=== PATIENT | female | born 1950 | race Caucasian/White ===

== ENCOUNTER 2020-06-25 13:22 | Outpatient (RCR) | payer MEDICARE, OTHER, SELFPAY ==
[2016-09-29 06:43] VITALS: BMI 26.3
== END 2020-09-07 23:59 ==
LOC: IMMUN 13:22
PROVIDERS: PCP Internal Medicine; Referring Provider Family Medicine; Visit Provider Family Medicine
DX: Z23 Encounter for immunization (principal)
CPT/HCPCS: 0001A; 0002A; 91300

== ENCOUNTER → 2021-01-13 07:00 | Outpatient (CLI) | payer MEDICARE, OTHER, SELFPAY ==
--- NOTE | 2021-01-13 08:00 | BRBX_PTH ---
PATIENT: NATALIO GAONA LOC: [facility] U#:[id number] AGE/SX: 74/F ROOM: RE01/13/[address]: Dr. Yanci Gonzalez MD : 1950 BED: DIS: SPEC #: [id number] RECD: 01/13/21 10:28 STATUS: JACQUE REQ #: [id number] ANITHA: 01/13/21 08:[address]: Yanci Gonzalez DEPT: SURGICAL PATHOLOGY RECD BY: Samira Thornton ENTERED: 01/13/21 11:51 SP TYPE: BREAST BX OTHR DR: Dr. Anushka San MD Tissues: Left breast, NOS Procedures: Surgery Specimen Level IV HEADER OPERATION: Left breast stereotactic biopsy PRE-OP DIAGNOSIS: 7 mm oval equal density, focal asymmetry with a circumscribed margin in the left breast at 10 o?clock middle depth TISSUE SUBMITTED: Left breast core tissue ISCHEMIC TIME: 1 minute FIXATION TIME: 11.5 hours MICROSCOPIC DIAGNOSIS Left breast, 10 o?clock middle depth, stereotactic core biopsy: Fibrocystic changes and intraductal hyperplasia without atypia. Negative for malignancy. See comment. KARLEE:pascual 01/14/2021 COMMENT Correlation with clinical, radiologic findings and appropriate follow up are necessary. MICROSCOPIC DESCRIPTION Slides are reviewed. GROSS DESCRIPTION Received in fixative is one container labeled with the patient's name and designated left breast. The specimen consists of multiple elongated fragments of collins-yellow fibroadipose tissue that in aggregate measure 5 x 3 x 0.6 cm. The entire specimen is submitted in four cassettes. / KARLEE:pascual 01/13/21 TC:5 CPT: 35346
--- NOTE | 2021-01-13 10:06 | PCM.OPRPT ---
Report of Operation Date of Procedure: 01/13/21 Pre-Operative Diagnosis: abnormal density on left breast mammograms Post-Operative Diagnosis: same Surgery/Procedure Performed:: left stereotactic breast biopsy Description of Surgical Findings:: abnormal density on left breast mammograms Surgeon: Yanci Gonzalez Type of Anesthesia: Local Specimen's removed: left breast tissue Estimated Blood Loss (mL): > 1 ml Description of Procedure: After informed consent was given, the patient was brought into the Breast Biopsy suite. Appropriate time out protocol was followed. The patient was placed in the prone position on the stereotactic biopsy table. The patient?s left breast was then placed in the opening at the head of the biopsy table. A training and development officer compression mammogram was then obtained in the medial lateral view. The suspicious radiological lesion was thus identified. Stereo pictures of the lesion were then taken for XYZ coordinates. The Mammotome biopsy stylus was then positioned where it would be entering into the patient?s breast. The skin at this site was then cleansed with a surgical skin preparation. The skin and subcutaneous tissues at this site were then infiltrated with 1% xylocaine. A small skin incision was made with an 11 blade scalpel. The biopsy stylus was then positioned into the patient?s breast at the proper coordinates of depth. Using the Mammotome vacuum-assist device, several core samples of breast tissue were obtained. A hemostatic marker clip was then placed into the biopsy cavity and a training and development officer film revealed that it was properly deployed. The patient was then placed in the supine position and pressure was applied to the breast until no active bleeding was noted. Steristrips were applied to reapproximate the skin. A unilateral mammogram in the CC and MLO view were then taken which revealed that the marker clip was in the same area as the previous suspicious lesion. The patient tolerated the procedure well and was discharged from the Breast Biopsy suite in good condition. Complications none noted Admit VTE Documentation VTE Present on Admission: Yes VTE Mechan Device Prophylaxis: SCD's
== END ==
PROVIDERS: PCP Internal Medicine; Referring Provider Surgery; Visit Provider Surgery
DX: R92.8 Other abnormal and inconclusive findings on diagnostic imaging of breast (principal)
CPT/HCPCS: 19081; 88305; J7050; A4648

== ENCOUNTER 2022-05-11 21:24 | Inpatient (IN) | payer MEDICARE, OTHER, SELFPAY ==
[2022-05-11 21:34] LABS: Basophil# 0.06 X10^3/uL; Basophil% 0.4 % (0-1); Eosinophil# 0.08 X10^3/uL; Eosinophils% 0.5 % (0-5); Hematocrit 36.4 % (37-47); Hemoglobin 12.4 g/dL (12.0-15.0); Lymphocyte % 11.7 % (19-41); Mean Corp Hgb Conc 34.1 g/dL (32-36); Mean Corpuscular Hgb 29.9 pg (27.0-32.0); Mean Corpuscular Volume 87.7 fL (81-99); Mean Platelet Vol. 9.9 fl (6.2-12.0); Monocyte# 1.01 X10^3/uL; Monocyte% 6.2 % (0-10); NRBC Flagged by Analyzer 0 % (0-5); Neutrophil # 13.01 X10^3/uL (2.7-7.7); Neutrophil % 80.5 % (47-70); Platelet Count 226 K/mm3 (150-450); RBC Distribution Width CV 12.7 % (11.6-14.6); RBC Distribution Width SD 40.4 fl (35.1-43.9); Red Blood Count 4.15 M/mm3 (4.2-5.4); White Blood Count 16.2 K/mm3 (4.4-11.0)
[2022-05-11] MEDS: Ondansetron 4 MG/2 ML Vial IV (21:38)
[2022-05-11 21:46] VITALS: BP 98/48; PULSE 83; RESP 18; TEMP 36.6; O2SAT 88; O2SAT 92; BMI 28.6
[2022-05-11 21:47] LABS: Anion Gap 10 (5-15); BUN 13 mg/dL (7-18); BUN/Creat Ratio 12.9 RATIO (10-20); Calcium,Total 8.8 mg/dL (8.5-10.1); Chloride 102 mmol/L (98-107); Creatinine, Serum 1.01 mg/dL (0.55-1.02); EST Glomerular Filtration Rate 58 mL/min (>60); Est Glom Filt Rate - Afr Amer 70 mL/min (>60); Glucose 178 mg/dL (74-106); Potassium 3.8 mmol/L (3.5-5.1); Sodium Level 135 mmol/L (136-145)
--- NOTE | 2022-05-11 22:09 | EDS_ITS ---
HPI History of Present Illness Chief Complaint: Weakness Detail of Chief Complaint: Generalized weakness Informant: patient Narrative Narrative: Patient presents to the emergency department complaint of feeling weak since yesterday. Patient states that she started with an illness about a week ago with cough and body aches. She took a COVID test today and was negative. Patient has had sputum production at times that is green and yellow. She and her tell me that her oxygen level was low on arrival in the emergency department and was 88% on room air. Patient also has been checking her blood pressure at home and it was as low as 80 over 40s. She feels lightheaded and dizzy with standing and walking. Patient currently on an antibiotic that she was started for sinus congestion and fluid on her ears. Patient vomited x1 today. She had no diarrhea. She denies abdominal pain. She denies chest pain. [facility] Medical History (Updated 05/11/22 @ 23:[address] Jeanie Bello, ) Congestive heart failure (CHF) GERD (gastroesophageal reflux disease) Hypertension ICD (implantable cardioverter-defibrillator) in place Pacemaker Home Medications aspirin 81 mg tablet,delayed release (Ecotrin Low Strength) 81 mg PO DAILY 07/14/13 [History Last Taken Unknown] carvedilol 12.5 mg tablet 12.5 mg PO BID 07/14/13 [History Last Taken 09/29/16 06:00] cholecalciferol (vitamin D3) 50 mcg (2,000 unit) tablet 6,000 unit PO DAILY 07/14/13 [History Last Taken Unknown] esomeprazole magnesium 40 mg capsule,delayed release (Nexium) 40 mg PO DAILY 07/14/13 [History Last Taken 09/29/16 06:00] lisinopril 5 mg tablet 5 mg PO DAILY 07/14/13 [History Last Taken 07/21/13 08:00] rosuvastatin 10 mg tablet 10 mg PO QHS 07/14/13 [History Last Taken Unknown] Lactobacillus 40-Bifidobact 3-S.thermophilus 100 billion cell capsule (Probiotic) cap PO 05/11/22 [History Last Taken Unknown] omega-3 fatty acids 2,000 mg PO BID 05/11/22 [History Last Taken Unknown] Allergy/AdvReac Type Severity Reaction Status Date / Time codeine Allergy Rash Verified 02/13/21 08:39 Penicillins Allergy Rash Verified 02/13/21 08:39 Social History Smoking Status: Never smoker ROS ROS ED Review of Systems ROS Unobtainable: other Constitutional Constitutional ED: Reports fever(s) and lethargy; Denies chills, sweats or weight loss Eyes Eyes: Denies blurry vision, change in vision or diplopia ENT ENT ED: Denies rhinorrhea or sore throat Cardiovascular Cardiovascular: Denies chest pain, orthopnea or racing heartbeat Respiratory/Chest Respiratory/Chest: Reports cough, dyspnea, dyspnea on exertion and sputum; Denies orthopnea Gastrointestinal Gastrointestinal: Reports nausea and vomiting; Denies abdominal pain or diarrhea Genitourinary Genitourinary ED: Denies dysuria, hematuria or urinary frequency Musculoskeletal Musculoskeletal: Reports myalgias; Denies arthralgias, back pain or neck pain Integumentary Denies abscess, Abrasions or rash Neurologic Neurologic: Denies headache(s) or weakness Psychiatric Psychiatric: Denies anxiety, depression or suicidal thoughts Endocrine Endocrinology: Denies polydipsia, polyphagia or polyuria Hematologic/Lymphatic Hematologic/Lymphatic: Denies easy bleeding, easy bruising or lymphadenopathy Allergic/Immunologic Allergic/Immunologic ED: Denies mouth swelling, tongue swelling or urticaria EXAM Physical Exam Const Vital Signs: 05/11/22 21:46 05/11/22 21:46 05/11/22 21:46 Temperature 97.8 F Temperature Source Temporal Pulse Rate 83 Respiratory Rate 18 Respiratory Effort Normal Non-Labored Respiratory Pattern Normal Blood Pressure 98/48 L Blood Pressure Mean 64 Pulse Ox 88 92 Oxygen Delivery Method Room Air Nasal Cannula Oxygen Flow Rate (L/min) 2 05/11/22 23:12 Temperature Temperature Source Pulse Rate 79 Respiratory Rate 18 Respiratory Effort Respiratory Pattern Blood Pressure 95/44 L Blood Pressure Mean 61 Pulse Ox 94 Oxygen Delivery Method Nasal Cannula Oxygen Flow Rate (L/min) 2 Positive well nourished and well developed General Appearance ED: well developed and NAD HEENT Reports TM's clear and moist mucous membranes normocephalic and atraumatic; Negative for trauma or tenderness Tympanic Membrane ED: Yes TM's clear Eyes PERRL and EOMs intact bilaterally General Eye ED: Negative for pale conjunctiva or scleral icterus Neck no lymphadenopathy, supple and no JVD General: Negative for tenderness Chest Wall inspection of chest normal and palpation of chest normal Chest: Negative for tenderness Resp normal respiratory effort and clear to auscultation bilaterally Effort and Inspection: Negative for respiratory distress or pain with movement Auscultation: Negative for rhonchi, wheezes or diminished lung sounds Cardio regular rate, regular rhythm, S1 normal heart sound, S2 normal heart sound and no murmurs Peripheral Pulses: pulses 2+ throughout GI normal to inspection, nondistended, normoactive bowel sounds, soft to palpation, non-tender, non-distended and no masses Back/Spine no CVA tenderness and no thoracic nor lumbar tenderness Extremity normal to inspection General Extremety ED: Negative for edema General Extremity: Negative for edema Neuro oriented x3, CN's II-XII intact bilaterally, no sensory deficits noted and gait normal Sensorium / Orientation: awake, alert, oriented to person, oriented to place and oriented to time Motor Exam: strength 5/5 throughout and strength abnormal Psych mental status grossly normal Skin no rashes or lesions noted and no wounds MDM MDM MDM Narrative Medical decision making narrative: IV line established and patient placed on manager action. Nursing staff started per protocol lab work. Patient's blood pressure in the 90s and therefore I ordered a liter normal saline fluid bolus. Given her cough and sputum production and hypotension was concerned about pneumonia also given her hypoxemia. Chest x-ray obtained did show a right lower lobe infiltrate on my interpretation. Lab work-up did show an elevated white count of 16.2. Lactate is pending. Blood cultures ordered. Patient started on Rocephin and Zithromax. COVID and influenza rapid testing pending. Lab Data Attestation: I reviewed the patient's lab results. Labs: Laboratory Results - last 24 hr 05/11/22 05/11/22 05/11/22 21:14 21:14 22:49 WBC 16.2 H RBC 4.15 L Hgb 12.4 Hct 36.4 L MCV 87.7 MCH 29.9 MCHC 34.1 RDW Std Deviation 40.4 RDW Coeff of Yumiko 12.7 Plt Count 226 MPV 9.9 Immature Gran % (Auto) 0.700 Neut % (Auto) 80.5 H Lymph % (Auto) 11.7 L [place] % (Auto) 6.2 Eos % (Auto) 0.5 Baso % (Auto) 0.4 Absolute Neuts (auto) 13.0 H Absolute Lymphs (auto) 1.90 Nucleated RBC % 0 Sodium 135 L Potassium 3.8 Chloride 102 Carbon Dioxide 23.0 Anion Gap 10 BUN 13 Creatinine 1.01 Est GFR (MDRD) Af Amer 70 Est GFR (MDRD) Non-Af 58 L BUN/Creatinine Ratio 12.9 Glucose 178 H Lactic Acid 0.8 Calcium 8.8 Radiography Chest X-Ray - ED: 1 View Diagnostic Testing: Clinical Impression(s) from Imaging Studies Chest X-Ray 05/11/22 22:20 IMPRESSION: Right lower lobe pneumonia. Electronically Signed: Norm Hope MD at 23:17 EST , 1 view chest x-ray obtained interpreted by myself as right lower lobe infiltrate. Official report from radiology pending. Discharge Plan Triage Chief Complaint: Weakness ED Provider: Jeanie Bello Dx/Rx/DC Orders Clinical Impression: Pneumonia, Hypoxia, Weakness, Acute hypotension, Leukocytosis Prescriptions: No Action carvedilol 12.5 MG tablet 12.5 mg PO BID Label Comments: TAKES 1 1/2 TAB TWICE A DAY aspirin [Ecotrin Low Strength] 81 MG tablet,delayed release (DR/EC) 81 mg PO DAILY esomeprazole magnesium [Nexium] 40 MG capsule 40 mg PO DAILY lisinopril 5 MG tablet 5 mg PO DAILY rosuvastatin 10 MG tablet 10 mg PO QHS cholecalciferol (vitamin D3) 2,000 UNIT tablet 6,000 unit PO DAILY [place] 3 Capsule 2,000 mg PO BID Probiotic 100 billion cell Capsule PO Primary Care Provider: Anushka San Referrals: Anushka San MD [Primary Care Provider] - Disposition Disposition: Acute Care Hospital [facility]
--- NOTE | 2022-05-11 22:20 | RAD_ITS ---
INDICATION: cough EXAMINATION/TECHNIQUE: X-RAY - XR Chest 1 View COMPARISON: None. FINDINGS: Right lower lobe consolidation. Tortuous and calcified thoracic aorta. The heart is mildly enlarged. Left-sided cardiac device. No pleural effusion or pneumothorax. Degenerative changes of the thoracic spine. RAD/Chest 1 View (Portable) IMPRESSION: Right lower lobe pneumonia. Electronically Signed: Norm Hope MD at 23:17 EST ,
[2022-05-11] MEDS: 0.9% Normal Saline 1,000 ML 999 ML IV ×2 (22:50→23:10)
[2022-05-11] MEDS: Ceftriaxone 1 GM/50 ML BAG IV (23:10)
[2022-05-11 23:12] VITALS: BP 95/44; PULSE 79; RESP 18; O2SAT 94
[2022-05-11 23:25] LABS: Lactic Acid 0.8 mmol/L (0.4-1.9)
--- NOTE | 2022-05-11 23:29 | HP.PCM.HOS_ITS ---
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 A 6-day before presentation patient was having a pro ductive cough and was aching so she went to urgent care. She was diagnosed with fluid behind her right ear. Patient reports that her sputum is yellowish-green. Following the urgent care diagnosis the patient saw an ENT doctor 3 days before presentation who did not see fluid in patient's ear upon examination but however felt that patient sinuses should be dilated and for which patient has an kamron ointment on Sunday, May 15, 2022. Patient reports home temperature with Tmax of about 100.7F. She reports hypotension at home. Because patient was not feeling well she called the ENTs office and she was prescribed antibiotic and for which as at the time of presentation patient had taken 1 dose. On presentation to the emergency department patient oxygen saturation was 88% on room air. [facility] Medical History (Updated 05/11/22 @ 23:[address] Jeanie Bello, ) Congestive heart failure (CHF) GERD (gastroesophageal reflux disease) Hypertension ICD (implantable cardioverter-defibrillator) in place Pacemaker Home Medications aspirin 81 mg tablet,delayed release (Ecotrin Low Strength) 81 mg PO DAILY 07/14/13 [History Last Taken Unknown] carvedilol 12.5 mg tablet 12.5 mg PO BID 07/14/13 [History Last Taken 09/29/16 06:00] cholecalciferol (vitamin D3) 50 mcg (2,000 unit) tablet 6,000 unit PO DAILY 07/14/13 [History Last Taken Unknown] esomeprazole magnesium 40 mg capsule,delayed release (Nexium) 40 mg PO DAILY 07/14/13 [History Last Taken 09/29/16 06:00] lisinopril 5 mg tablet 5 mg PO DAILY 07/14/13 [History Last Taken 07/21/13 08:00] rosuvastatin 10 mg tablet 10 mg PO QHS 07/14/13 [History Last Taken Unknown] Lactobacillus 40-Bifidobact 3-S.thermophilus 100 billion cell capsule (Probiotic) cap PO 05/11/22 [History Last Taken Unknown] omega-3 fatty acids 2,000 mg PO BID 05/11/22 [History Last Taken Unknown] Allergy/AdvReac Type Severity Reaction Status Date / Time codeine Allergy Rash Verified 02/13/21 08:39 Penicillins Allergy Rash Verified 02/13/21 08:39 Family History (Updated 05/11/22 @ 23:[address] Robb Coates MD) Other CAD (coronary artery disease) CVA (cerebral vascular accident) Diabetes Kidney disease Surgical History (Updated 05/11/22 @ 23:[address] Robb Coates MD) Hx of cholecystectomy Social History Smoking Status: Never smoker ROS ROS Narrative Pertinent positives and pertinent negatives as noted in HPI. All other systems were reviewed and are negative Vital Signs Vital Signs Vital Signs: 05/11/22 21:46 05/11/22 21:46 05/11/22 21:46 Temperature 97.8 F Temperature Source Temporal Pulse Rate 83 Respiratory Rate 18 Respiratory Effort Normal Non-Labored Respiratory Pattern Normal Blood Pressure 98/48 L Blood Pressure Mean 64 Pulse Ox 88 92 Oxygen Delivery Method Room Air Nasal Cannula Oxygen Flow Rate (L/min) 2 05/11/22 23:12 Temperature Temperature Source Pulse Rate 79 Respiratory Rate 18 Respiratory Effort Respiratory Pattern Blood Pressure 95/44 L Blood Pressure Mean 61 Pulse Ox 94 Oxygen Delivery Method Nasal Cannula Oxygen Flow Rate (L/min) 2 Weight Weight: 78 kg Body Mass Index (BMI) 28.6 Physical Exam Narrative Physical exam: General: Well-nourished, well-developed. Head: Normocephalic, atraumatic, no tenderness Eyes: Vision is grossly intact. EOMI ENT, no trauma, moist mucous membranes, no rhinorrhea Neck: Nontender, No thyromegaly. CVS: Regular rate and rhythm. S1-S2 present. No murmur, gallop or rub. Respiratory : Rales at right base, chest wall nontender, no wheezing Abdomen: Soft, nontender, nondistended, normal bowel sounds, no masses : Deferred Back: Nontender, no CVA tenderness. Extremities: Nontender full range of motion, no trauma Skin: Normal color, no trauma, abrasions Neuro: Alert, oriented, cranial nerves II through XII grossly intact. Psychiatry: Normal mood. Normal affect. Not depressed. Not anxious. Results Lab / Micro Data Result Diagrams: 05/11/22 21:14 05/11/22 21:14 Labs: Laboratory Results - last 24 hr 05/11/22 21:14: WBC 16.2 H, RBC 4.15 L, Hgb 12.4, Hct 36.4 L, MCV 87.7, MCH 29.9, MCHC 34.1, RDW Std Deviation 40.4, RDW Coeff of Yumiko 12.7, Plt Count 226, MPV 9.9, Immature Gran % (Auto) 0.700, Neut % (Auto) 80.5 H, Lymph % (Auto) 11.7 L, [place] % (Auto) 6.2, Eos % (Auto) 0.5, Baso % (Auto) 0.4, Absolute Neuts (auto) 13.0 H, Absolute Lymphs (auto) 1.90, Nucleated RBC % 0 05/11/22 21:14: Sodium 135 L, Potassium 3.8, Chloride 102, Carbon Dioxide 23.0, Anion Gap 10, BUN 13, Creatinine 1.01, Est GFR (MDRD) Af Amer 70, Est GFR (MDRD) Non-Af 58 L, BUN/Creatinine Ratio 12.9, Glucose 178 H, Calcium 8.8 05/11/22 22:49: Lactic Acid 0.8 Radiology Impression Chest X-Ray 05/11/22 22:20 IMPRESSION: Right lower lobe pneumonia. Electronically Signed: Norm Hope MD at 23:17 EST , Assessment & Plan Assessment/Plan (1) Pneumonia: PLAN: Plan Pneumonia with hypoxia Lactic acid: 0.8 Oxygen saturation: Continue oxygen supplementation started at the emergency department. Titrate Chest x-ray: Impression of radiologist: Right lower lobe pneumonia. Chest x-ray was visualized and independent interpreted. I agree with radiologist interpretation. White count of 16,200. With neutrophilic predominance. Trend BMP. Respiratory Gram stain and culture pending Antibiotics: Received ceftriaxone and azithromycin emergency department and continued. Legionella antigen screen and Strep antigen ordered Acute hypotension Patient with hypotension reportedly with systolic of 80s at home and MAP of less than 64 [id number]. Received normal saline bolus. Gentle IV hydration continue. Trend BMP. Hold home blood pressure medication of carvedilol and lisinopril. DVT prophylaxis Subcutaneous Lovenox ordered. Charges/Coding Visit Charges Inpatient E&M: 04243 Init Hosp L3
[2022-05-11 23:51] VITALS: BP 95/50; PULSE 81; RESP 18; TEMP 36.7; O2SAT 94
[2022-05-12] VITALS (13 sets, daily range): BP systolic 90–138; BP diastolic 53–72; PULSE 75–104; RESP 16–18; TEMP 36.7–37; O2SAT 93–96; BMI 27.4
[2022-05-12 01:17] LABS: Red Blood Cells-Urine 0 SEEN /hpf (0-5)
[2022-05-12 01:19] LABS: Color, Urine Yellow (Yellow); Glucose, Dipstick Normal (Normal); Ketone-Dipstick Negative (Negative); Leukocyte Esterase-Dipstick 25 /ul (Negative); Nitrite-Dipstick Negative (Negative); Occult Blood-Urine 10 /ul (Negative); Protein-Dipstick 30 mg/dl (Negative); Urine Bilirubin Dipstick Negative (Negative); Urine Clarity Clear (Clear); Urine Urobilinogen 1 mg/dl (Normal)
[2022-05-12 01:31] LABS: Bacteria 3+ /hpf (None Seen); Hyaline Cast 0-5 SEEN /lpf (0-5); Mucous, Urine RARE /hpf (<or=2+); Squamous Epithelial Cells - UA 0-5 SEEN /hpf (5-10); White Blood Cells 0-5 SEEN /hpf (0-5)
[2022-05-12] MEDS: guaiFENesin 1,200 MG Tablet 1200 MG PO ×3 (01:48→21:49)
[2022-05-12] MEDS: 0.9% Normal Saline 1,000 ML 100 ML IV ×2 (01:48→11:11)
[2022-05-12 06:28] LABS: Basophil# 0.04 X10^3/uL; Basophil% 0.3 % (0-1); Eosinophil# 0.06 X10^3/uL; Eosinophils% 0.5 % (0-5); Hematocrit 35.4 % (37-47); Hemoglobin 11.5 g/dL (12.0-15.0); Lymphocyte % 21.4 % (19-41); Mean Corp Hgb Conc 32.5 g/dL (32-36); Mean Corpuscular Hgb 29.3 pg (27.0-32.0); Mean Corpuscular Volume 90.3 fL (81-99); Mean Platelet Vol. 9.9 fl (6.2-12.0); Monocyte# 0.79 X10^3/uL; Monocyte% 6.3 % (0-10); NRBC Flagged by Analyzer 0 % (0-5); Neutrophil # 8.97 X10^3/uL (2.7-7.7); Neutrophil % 70.9 % (47-70); Platelet Count 209 K/mm3 (150-450); RBC Distribution Width CV 12.7 % (11.6-14.6); Red Blood Count 3.92 M/mm3 (4.2-5.4); White Blood Count 12.6 K/mm3 (4.4-11.0)
[2022-05-12 06:50] LABS: Anion Gap 7 (5-15); BUN 11 mg/dL (7-18); BUN/Creat Ratio 14.2 RATIO (10-20); Calcium,Total 8.1 mg/dL (8.5-10.1); Chloride 111 mmol/L (98-107); Creatinine, Serum 0.78 mg/dL (0.55-1.02); EST Glomerular Filtration Rate 78 mL/min (>60); Est Glom Filt Rate - Afr Amer 94 mL/min (>60); Estimated Creatinine Clearance 47.78 ml/min; Glucose 102 mg/dL (74-106); Potassium 3.8 mmol/L (3.5-5.1); Sodium Level 142 mmol/L (136-145)
--- NOTE | 2022-05-12 08:15 | PCM.PN.HOSP ---
Reason for Visit Reason for Visit: Diagnoses Pneumonia, unspecified organism (05/11/22) Subjective Subjective Patient is a 71-year-old lady admitted with shortness of breath. Chest x-ray obtained on admission demonstrated right lower lobe pneumonia admitted to a monitored bed for treatment Objective Data Objective Data Vital Signs: Vital Signs Temp Pulse Resp BP Pulse Ox O2 Del Method O2 Flow Rate 98.5 F 75 16 105/57 L 93 Room Air 2 05/12/22 05:40 05/12/22 05:40 05/12/22 05:40 05/12/22 05:40 05/12/22 05:40 05/12/22 05:40 05/11/22 23:51 Oxygen Flow Rate (L/min) 2 Oxygen Delivery Method Room Air Weight: 74.8 kg Body Mass Index (BMI) 27.4 Intake & Output: Intake and Output for Last 24 Hours 05/10/22 05/11/22 05/12/22 23:59 23:59 23:59 Intake Total 1050 / 1050 1555 / 1555 Balance 1050 / 1050 1555 / 1555 Lab / Micro Data Result Diagrams: 05/12/22 06:00 05/12/22 06:00 Labs: Laboratory Results - last 24 hr 05/11/22 21:14: WBC 16.2 H, RBC 4.15 L, Hgb 12.4, Hct 36.4 L, MCV 87.7, MCH 29.9, MCHC 34.1, RDW Std Deviation 40.4, RDW Coeff of Yumiko 12.7, Plt Count 226, MPV 9.9, Immature Gran % (Auto) 0.700, Neut % (Auto) 80.5 H, Lymph % (Auto) 11.7 L, [place] % (Auto) 6.2, Eos % (Auto) 0.5, Baso % (Auto) 0.4, Absolute Neuts (auto) 13.0 H, Absolute Lymphs (auto) 1.90, Nucleated RBC % 0 05/11/22 21:14: Sodium 135 L, Potassium 3.8, Chloride 102, Carbon Dioxide 23.0, Anion Gap 10, BUN 13, Creatinine 1.01, Est GFR (MDRD) Af Amer 70, Est GFR (MDRD) Non-Af 58 L, BUN/Creatinine Ratio 12.9, Glucose 178 H, Calcium 8.8 05/11/22 22:49: Lactic Acid 0.8 05/12/22 01:08: Urine Color Yellow, Urine Clarity Clear, Urine pH 5.0, Ur Specific [place] 1.020, Urine Protein 30 H, Urine Glucose (UA) Normal, Urine Ketones Negative, Urine Occult Blood 10 H, Urine Nitrite Negative, Urine Bilirubin Negative, Urine Urobilinogen 1 H, Ur Leukocyte Esterase 25 H, Urine RBC 0 SEEN, Urine WBC 0-5 SEEN, Ur Squamous Epith Cells 0-5 SEEN, Urine Bacteria 3+, Hyaline Casts 0-5 SEEN, Urine Mucus RARE 05/12/22 06:00: WBC 12.6 H, RBC 3.92 L, Hgb 11.5 L, Hct 35.4 L, MCV 90.3, MCH 29.3, MCHC 32.5, RDW Std Deviation 42.0, RDW Coeff of Yumiko 12.7, Plt Count 209, MPV 9.9, Immature Gran % (Auto) 0.600, Neut % (Auto) 70.9 H, Lymph % (Auto) 21.4, [place] % (Auto) 6.3, Eos % (Auto) 0.5, Baso % (Auto) 0.3, Absolute Neuts (auto) 9.0 H, Absolute Lymphs (auto) 2.70, Nucleated RBC % 0 05/12/22 06:00: Sodium 142, Potassium 3.8, Chloride 111 H, Carbon Dioxide 24.0, Anion Gap 7, BUN 11, Creatinine 0.78, Estim Creat Clear Calc 47.78, Est GFR (MDRD) Af Amer 94, Est GFR (MDRD) Non-Af 78, BUN/Creatinine Ratio 14.2, Glucose 102, Calcium 8.1 L Micro: Microbiology 05/11/22 22:49 Nasal Secretion SARS-CoV-2 & FLU Antigen (Rapid) - Final Radiography Diagnostic Testing: Radiology Impression Chest X-Ray 05/11/22 22:20 IMPRESSION: Right lower lobe pneumonia. Electronically Signed: Norm Hope MD at 23:17 EST , Physical Exam Narrative GENERAL: cooperative HEENT: Atraumatic; normocephalic EYES; Anicteric, Normal Conjunctiva NECK; supple, normal thyroid, RESPIRATORY: Diminished to auscultation CARDIOVASCULAR: Regular S1 S2, GI: soft, normoactive bowel sounds, : No Renal angle tenderness; EXTREMITIES: No edema, no clubbing, MUSCULOSKELETAL: no muscle wasting NEURO: Awake; no lateralizing signs. SKIN: No Rash PSYCH; Flat affect Assessment & Plan Assessment/Plan (1) Pneumonia: PLAN: Plan Patient is a 71-year-old lady admitted with shortness of breath. Chest x-ray obtained on admission demonstrated right lower lobe pneumonia admitted to a monitored bed for treatment 1. Pneumonia - Suspected to be secondary to streptococcal pneumonia, Blood and sputum cultures sent. Patient placed on Rocephin and Zithromax and placed on oxygen titrated to keep Pulse Ox greater than 90 2. Transient hypotension ? Patient was resuscitated with IV fluid 3. Essential hypertension ? Patient is on lisinopril held on admission in view of patient hypotension 4. GERD ? Patient is on esomeprazole, substituted with Protonix 5. Dyslipidemia ? Patient is on rosuvastatin substituted with atorvastatin in the hospital 6. DVT prophylaxis ? SC Lovenox Time spent in the patient's overall evaluation,decision-making process, review of diagnostic data, adjustment of management, discussion with other providers, nursing nursing and ancillary staff involved in patient's care documentation, 56 Minutes Charges/Coding Visit Charges Inpatient E&M: 92552 Subs Hosp L3
[2022-05-12] MEDS: Cholecalciferol (VIT D3) 25 MCG TABLET (1,000 UNITS) 150 MCG PO (09:01)
[2022-05-12] MEDS: Aspirin E.C. 81 MG Tablet PO (09:01)
[2022-05-12] MEDS: Enoxaparin 40 MG/0.4 ML Syringe SC (09:01)
[2022-05-12] MEDS: Pantoprazole Sodium 40 MG Tablet PO (10:08)
[2022-05-12] MEDS: Acetaminophen 325 MG Tablet 650 MG PO (10:08)
--- NOTE | 2022-05-12 12:00 | CASEMGMT ---
SMOOTH NARANJO Face to Face with patient for initial transition planning/care coordination assessment. RN CM introduced self and role at [facility]. Patient lying in bed, alert and oriented. Patient willing to participate in assessment and is able to answer all questions appropriately. Care providers, pharmacy, and demographics verified. Patient wishes to discharge home, denies need for home health at this time. Patient states she has no further needs or concerns at this time. CM to follow for discharge planning needs that may arise. 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 Patient states she is independent at home. Transportation: self, DME/HHC: Patient states she has shower chair, cane, and walker at home. No previous HHC or SNF. Will monitor for home oxygen at discharge, prefers [employer]. Disposition Plan: Patient to discharge home with family support and follow-up plans in place. Danielle WYATT, RN, CM
[2022-05-12] MEDS: Fluticasone 0.05% 1 SPRAY NASAL.SRY NASAL ×2 (15:17→21:50)
--- NOTE | 2022-05-12 15:24 | CHAPLAIN ---
Type of Pastoral Visit _x__ Initial Visit ___ Follow-up Visit ___ On-call Visit ___ General Patient Visit ___ Spiritual Assessment ___ Family Conference ___ Bereavement ___ Rapid Response ___ Code Blue ___ Other (describe below) Pastoral Care Referral From _x__ Patient ___ Family ___ Nurse ___ Physician ___ Secretary Administrative Assistant ___ Direct Service Professional ___ Other (describe below) Sacrament/Intervention _x__ Active listening ___ Anointing ___ Sabianist ___ Bereavement ___ Communion ___ Aileen exploration ___ ___ Life review _x__ Prayer ___ Reconciliation ___ Sacrament of Sick _x__ Supportive presence ___ Wedding ___ Other (describe below) Pastoral Comments patient stated that she has been in hospitals before but not recently; pt does not admit to any concerns or anxiety; sister of pt is in the room and described as her best friend and sister; sister says she will make sure the patient gets what she needs; prayer is welcomed
[2022-05-12] MEDS: Atorvastatin Calcium 20 MG Tablet PO (21:49)
[2022-05-12] MEDS: Ceftriaxone 1 GM/50 ML BAG IV (21:50)
[2022-05-12] MEDS: 0.9% Saline Lock 10 ML Syringe IV (21:55)
[2022-05-13 02:49] VITALS: PULSE 81
[2022-05-13 04:02] VITALS: BP 113/60; PULSE 80; RESP 16; TEMP 37.1; O2SAT 96
[2022-05-13 06:26] LABS: Absolute Lymphocyte Count 3.16 X10^3/uL (0.83-4.51); Absolute Neutrophil Count 4.9 X10^3/uL (2.0-7.7); Basophil# 0.06 X10^3/uL; Basophil% 0.7 % (0-1); Eosinophil# 0.28 X10^3/uL; Eosinophils% 3.1 % (0-5); Hematocrit 33.8 % (37-47); Lymphocyte # 3.16 X10^3/ul (0.83-4.51); Lymphocyte % 35.5 % (19-41); Mean Corp Hgb Conc 32.5 g/dL (32-36); Mean Corpuscular Hgb 29.2 pg (27.0-32.0); Mean Corpuscular Volume 89.7 fL (81-99); Mean Platelet Vol. 9.7 fl (6.2-12.0); Monocyte# 0.51 X10^3/uL; Monocyte% 5.7 % (0-10); NRBC Flagged by Analyzer 0 % (0-5); Neutrophil # 4.85 X10^3/uL (2.7-7.7); Neutrophil % 54.6 % (47-70); Platelet Count 212 K/mm3 (150-450); RBC Distribution Width CV 12.8 % (11.6-14.6); Red Blood Count 3.77 M/mm3 (4.2-5.4); White Blood Count 8.9 K/mm3 (4.4-11.0)
[2022-05-13 06:56] LABS: Anion Gap 7 (5-15); BUN 11 mg/dL (7-18); BUN/Creat Ratio 14.9 RATIO (10-20); Calcium,Total 8.4 mg/dL (8.5-10.1); Chloride 111 mmol/L (98-107); Creatinine, Serum 0.74 mg/dL (0.55-1.02); EST Glomerular Filtration Rate 83 mL/min (>60); Est Glom Filt Rate - Afr Amer 100 mL/min (>60); Estimated Creatinine Clearance 47.78 ml/min; Glucose 106 mg/dL (74-106); Magnesium 1.8 mg/dL (1.6-2.6); Phosphorus 2.3 mg/dL (2.5-4.9); Potassium 3.6 mmol/L (3.5-5.1); Sodium Level 141 mmol/L (136-145)
[2022-05-13 07:42] VITALS: PULSE 90
[2022-05-13] MEDS: Aspirin E.C. 81 MG Tablet PO (07:45)
[2022-05-13] MEDS: Cholecalciferol (VIT D3) 25 MCG TABLET (1,000 UNITS) 150 MCG PO (07:46)
[2022-05-13] MEDS: guaiFENesin 1,200 MG Tablet 1200 MG PO (07:46)
[2022-05-13] MEDS: Fluticasone 0.05% 1 SPRAY NASAL.SRY NASAL (07:47)
[2022-05-13] MEDS: Pantoprazole Sodium 40 MG Tablet PO (07:47)
[2022-05-13 07:55] VITALS: O2SAT 97
--- NOTE | 2022-05-13 10:01 | DCINST_ITS ---
Discharge Instructions Diet Discharge Diet: No restrictions Activity Discharge Activity: Return to Normal Activity Weight Bearing Status: Weight bearing as tolerated Dressing / Incision Call your doctor if you observe: Fever of 101 or Higher, Coldness, Increased Pain, Numbness or Tingling, Change in Color, Inability to urinate, Inability to have a bowel movement, Using more than 1 pad per hour, Shortness of breath, Dizziness, Fainting spells, Swelling in the ankles, Chest pain, Prolonged hiccupping, Increased palpitations (irregular heartbeat) and Calf discomfort Follow Up Care When: IN 2 WEEKS Test Results: Test results from this visit will be discussed in further detail at your follow- up appointment, if applicable. Discharge Plan Admission Admit Date/Time: 05/11/22 23:17 Primary Reason for Your Visit: RLL Pneumonia Attending Provider: Issac Mary Primary Care Provider: Anushka San Consulting Providers: Robb Coates ; Mark Jones Discharge Orders/Prescriptions Prescriptions: New Mucus Relief ER 1,200 mg Tablet Extended Release 12hr 1,200 mg PO BID 7 Days Qty: 14 0RF levofloxacin 500 mg tablet 500 mg PO DAILY Qty: 5 0RF Continued carvedilol 12.5 MG tablet 12.5 mg PO BID Label Comments: TAKES 1 1/2 TAB TWICE A DAY aspirin [Ecotrin Low Strength] 81 MG tablet,delayed release (DR/EC) 81 mg PO DAILY esomeprazole magnesium [Nexium] 40 MG capsule 40 mg PO DAILY lisinopril 5 MG tablet 5 mg PO DAILY rosuvastatin 10 MG tablet 10 mg PO QHS cholecalciferol (vitamin D3) 2,000 UNIT tablet 6,000 unit PO DAILY omega-3 fatty acids Capsule 2,000 mg PO BID benzonatate 100 mg Capsule 100 mg PO TID PRN (Reason: Cough) Lactobacillus acidophilus 1 caplet PO.IVFORM DAILY Discontinued doxycycline hyclate [Vibra-Tabs] 100 mg Tablet 100 mg PO BID Rx Instructions: x7 days had 1 dose Referrals / Follow Up: Anushka San MD [Primary Care Provider] - Within 2 Weeks Disposition Disposition (needs filled in before D/C Order can be placed): Home, Self Care
[2022-05-13 10:21] VITALS: BP 113/63; PULSE 85; RESP 18; TEMP 36.4; O2SAT 94
--- NOTE | 2022-05-13 11:07 | DS.PCM_ITS ---
Providers Date of Admission: 05/11/22 Date of Discharge: 05/13/22 Primary Care Physician: Dr. Anushka San MD Reason For Visit: PNEUMONIA Diagnosis Discharge Diagnosis (1) Pneumonia: Status: Acute Code(s): J18.9 - Pneumonia, unspecified organism Plan This is a 71-year-old female was admitted with 6 days history of productive cough with yellowish-greenish sputum, right otitis media. Thereafter patient saw ENT doctor 3 days prior to admission did not find fluid in the middle ear but sinus congestion/sinusitis and has appointment on May 15, 2022. Patient also had a fever Tmax 100.7 Fahrenheit reported hypotension at home. She had 1 dose of antibiotic doxycycline before admission. Mild hypoxia 88% on room air Chest x-ray obtained on admission demonstrated right lower lobe pneumonia admi tted to a monitored bed for treatment 1. Right lower lobe pneumonia - Suspected to be secondary to streptococcal pneumonia,? Blood and sputum cultures sent.? Blood culture times x2 pending from 05/11. Urinary antigens are negative. Flu and SARS-CoV-2 antigen negative. Patient states she is vaccin ated with COVID-pneumonia and flu. Patient had Rocephin and Zithromax and placed on oxygen titrated to keep Pulse Ox greater than 90. Hypoxia resolved. Patient is discharged on Levaquin for 5 more days to complete a total of 7 days of fluid. 2.? Transient hypotension ? Patient was resuscitated with IV fluid. Hypotension resolved. Patient was on Coreg 12.5 mg twice daily and lisinopril 5 mg at home. Antihypertensive medications were held. Advised to monitor BP at home and if systolic blood pressure less than 100 mmHg persistently, decrease the dose of Coreg 6.25 mg. Continue to hold dyspnea for 2 weeks until sees PCP. 3.? Essential hypertension ? Patient is on lisinopril held on admission in view of patient hypotension 4.? GERD ? Patient is on esomeprazole, substituted with Protonix 5.? Dyslipidemia ? Patient is on rosuvastatin substituted with atorvastatin in the hospital 6.? DVT prophylaxis ? SC Lovenox Discharge medication reconciliation done. Discharge follow-up instructions completed. Discharge process discussed with the patient and all questions were answered to patient's satisfaction. Total time spent, exact 35 minutes on discharge meds reconciliation, exam ination, coordination of care with nurses and ancillary staff, review of imaging and blood test and discussion with the patient on follow-up instructions. Medications at Discharge Home Medications aspirin 81 mg tablet,delayed release (Ecotrin Low Strength) 81 mg PO DAILY 07/14/13 cholecalciferol (vitamin D3) 50 mcg (2,000 unit) tablet 6,000 unit PO DAILY 07/14/13 esomeprazole magnesium 40 mg capsule,delayed release (Nexium) 40 mg PO DAILY Check with primary doctor 07/14/13 lisinopril 5 mg tablet 5 mg PO DAILY 07/14/13 rosuvastatin 10 mg tablet 10 mg PO QHS 07/14/13 omega-3 fatty acids 2,000 mg PO BID 05/11/22 Lactobacillus acidophilus 1 caplet PO.IVFORM DAILY Check with primary doctor 05/12/22 benzonatate 100 mg capsule 100 mg PO TID PRN Cough 05/12/22 carvedilol 12.5 mg tablet 12.5 mg PO BID #10 tabs 05/13/22 guaifenesin 1,200 mg tablet, extended release 12 hr (Mucus Relief ER) 1,200 mg PO BID 7 days #14 tabs 05/13/22 levofloxacin 500 mg tablet 500 mg PO DAILY #5 tabs 05/13/22 Weight / BMI Weight Weight: 164 lb 14.492 oz Body Mass Index (BMI) 27.4 ABG / Lab / Microbiology Data Result Diagrams: 05/13/22 06:15 05/13/22 06:15 Laboratory: Laboratory Results - last 24 hr 05/13/22 06:15: WBC 8.9, RBC 3.77 L, Hgb 11.0 L, Hct 33.8 L, MCV 89.7, MCH 29.2, MCHC 32.5, RDW Std Deviation 42.0, RDW Coeff of Yumiko 12.8, Plt Count 212, MPV 9.7, Immature Gran % (Auto) 0.400, Neut % (Auto) 54.6, Lymph % (Auto) 35.5, [place] % (Auto) 5.7, Eos % (Auto) 3.1, Baso % (Auto) 0.7, Absolute Neuts (auto) 4.9, Absolute Lymphs (auto) 3.16, Nucleated RBC % 0 05/13/22 06:15: Sodium 141, Potassium 3.6, Chloride 111 H, Carbon Dioxide 23.0, Anion Gap 7, BUN 11, Creatinine 0.74, Estim Creat Clear Calc 47.78, Est GFR (MDRD) Af Amer 100, Est GFR (MDRD) Non-Af 83, BUN/Creatinine Ratio 14.9, Glucose 106, Calcium 8.4 L, Phosphorus 2.3 L, Magnesium 1.8 Microbiology: Microbiology 05/12/22 01:08 Urine, Random Legionella Antigen - Final 05/12/22 01:08 Urine, Clean Catch Streptococcus pneumoniae Antigen (M - Final 05/11/22 22:49 Nasal Secretion SARS-CoV-2 & FLU Antigen (Rapid) - Final D/C Instructions Discharge Diet: No restrictions Weight Bearing Status: Weight bearing as tolerated Call your doctor if you observe: Fever of 101 or Higher, Coldness, Increased Pain, Numbness or Tingling, Change in Color, Inability to urinate, Inability to have a bowel movement, Using more than 1 pad per hour, Shortness of breath, Dizziness, Fainting spells, Swelling in the ankles, Chest pain, Prolonged hiccupping, Increased palpitations (irregular heartbeat) and Calf discomfort When: IN 2 WEEKS Meaningful Use Info Meaningful Use Diagnoses (Choose all that apply): None applicable Discharge Plan Admission Admit Date/Time: 05/11/22 23:17 Primary Reason for Your Visit: RLL Pneumonia Attending Provider: Issac Mary Primary Care Provider: Anushka San Consulting Providers: Robb Coates ; Mark Jones Discharge Orders/Prescriptions Prescriptions: New Mucus Relief ER 1,200 mg Tablet Extended Release 12hr 1,200 mg PO BID 7 Days Qty: 14 0RF levofloxacin 500 mg tablet 500 mg PO DAILY Qty: 5 0RF Continued aspirin [Ecotrin Low Strength] 81 MG tablet,delayed release (DR/EC) 81 mg PO DAILY esomeprazole magnesium [Nexium] 40 MG capsule 40 mg PO DAILY rosuvastatin 10 MG tablet 10 mg PO QHS cholecalciferol (vitamin D3) 2,000 UNIT tablet 6,000 unit PO DAILY omega-3 fatty acids Capsule 2,000 mg PO BID benzonatate 100 mg Capsule 100 mg PO TID PRN (Reason: Cough) Lactobacillus acidophilus 1 caplet PO.IVFORM DAILY carvedilol 12.5 MG tablet 12.5 mg PO BID Qty: 10 0RF Label Comments: TAKES 1 1/2 TAB TWICE A DAY Rx Instructions: Advised to monitor BP and if systolic BP less than 100 mmHg, will decrease the dose to 6.25 mg twice daily. Held lisinopril 5 MG tablet 5 mg PO DAILY Hold Instructions: Hold for 2 weeks until sees PCP. Discontinued doxycycline hyclate [Vibra-Tabs] 100 mg Tablet 100 mg PO BID Rx Instructions: x7 days had 1 dose Referrals / Follow Up: Anushka San MD [Primary Care Provider] - Within 2 Weeks Disposition Disposition (needs filled in before D/C Order can be placed): Home, Self Care Charges/Coding Visit Charges Inpatient E&M: 71981 Disch Hosp >30min
[2022-05-13 12:54] VITALS: O2SAT 95; O2SAT 96
== END 2022-05-13 13:13 | disposition home or self-care (01) | DRG 195 ==
LOC: ED 23:30 → PCU 23:39
PROVIDERS: Internal Medicine; Admitting Provider Hospitalist; Emergency Provider Emergency Medicine; PCP Internal Medicine; Visit Provider Internal Medicine
DX: J15.4 Pneumonia due to other streptococci (principal); I10 Essential (primary) hypertension; I95.89 Other hypotension; K21.9 Gastro-esophageal reflux disease without esophagitis; R09.02 Hypoxemia; Z95.810 Presence of automatic (implantable) cardiac defibrillator; Z79.82 Long term (current) use of aspirin; Z79.899 Other long term (current) drug therapy
CPT/HCPCS: 36415; 71045; 80048; 81001; 83605; 83735; 84100; 85025; 87040; 87428; 87449; 94668; 99252; 99285; J7030; A4216; G0463; J2405

== ENCOUNTER 2022-06-02 09:51 | Emergency (ER) | payer MEDICARE, OTHER, SELFPAY ==
[2022-06-02 09:52] VITALS: BP 118/76; PULSE 105; RESP 24; TEMP 36.9; O2SAT 99; BMI 29.3
[2022-06-02] MEDS: 0.9% Normal Saline 1,000 ML 1000 ML IV (10:37)
[2022-06-02] MEDS: Ondansetron 4 MG/2 ML Vial IV (10:37)
[2022-06-02 10:45] LABS: Absolute Lymphocyte Count 1.47 X10^3/uL (0.83-4.51); Absolute Neutrophil Count 12.5 X10^3/uL (2.0-7.7); Basophil# 0.04 X10^3/uL; Basophil% 0.3 % (0-1); Eosinophil# 0.19 X10^3/uL; Eosinophils% 1.3 % (0-5); Hematocrit 46.2 % (37-47); Hemoglobin 14.5 g/dL (12.0-15.0); Lymphocyte # 1.47 X10^3/ul (0.83-4.51); Lymphocyte % 9.9 % (19-41); Mean Corp Hgb Conc 31.4 g/dL (32-36); Mean Corpuscular Hgb 29.1 pg (27.0-32.0); Mean Corpuscular Volume 92.8 fL (81-99); Mean Platelet Vol. 10.9 fl (6.2-12.0); Monocyte# 0.61 X10^3/uL; Monocyte% 4.1 % (0-10); NRBC Flagged by Analyzer 0 % (0-5); Neutrophil % 83.8 % (47-70); Platelet Count 243 K/mm3 (150-450); RBC Distribution Width CV 13.1 % (11.6-14.6); RBC Distribution Width SD 43.9 fl (35.1-43.9); Red Blood Count 4.98 M/mm3 (4.2-5.4); White Blood Count 14.9 K/mm3 (4.4-11.0)
[2022-06-02 11:00] LABS: ALB/GLOB Ratio 1.3 RATIO (0.9-2.4); AST(SGOT) 58 U/L (15-37); Alanine Aminotransfer ALT/SGPT 76 U/L (13-56); Albumin, Serum 4.1 g/dL (3.2-5.0); Alkaline Phosphatase 111 U/L (45-117); Anion Gap 10 (5-15); BUN 17 mg/dL (7-18); BUN/Creat Ratio 17.3 RATIO (10-20); Calcium,Total 9.4 mg/dL (8.5-10.1); Chloride 104 mmol/L (98-107); Creatinine, Serum 0.98 mg/dL (0.55-1.02); EST Glomerular Filtration Rate 59 mL/min (>60); Est Glom Filt Rate - Afr Amer 72 mL/min (>60); Estimated Creatinine Clearance 48.75 ml/min; Globulin 3.2 g/dL (2.2-4.2); Glucose 135 mg/dL (74-106); Lipase 187 U/L (73-393); Potassium 4.7 mmol/L (3.5-5.1); Protein, Total 7.3 g/dL (6.4-8.2); Sodium Level 138 mmol/L (136-145)
--- NOTE | 2022-06-02 11:13 | ED.VIS.GI ---
HPI HPI - GI History of Present Illness Chief Complaint: Nausea/Vomiting/Diarrhea Informant: patient Abdominal Pain/Flank Pain Onset: Today Context: Sudden Onset Timing: Intermittent Quality: Cramping Location: Diffuse Worsened by: Nothing Relieved by: Nothing Nausea/Vomiting/Emesis GI Symptom: Positive for Nausea and Vomiting Diarrhea/Melena/Hematochezia GI Symptom: Positive for Diarrhea; Negative for Melena or Hematochezia Associated Symptoms Associated Symptoms: Negative for Dysuria, Frequency or Hematuria Narrative Narrative: Patient presents with nausea, vomiting, diarrhea, and abdominal pain that began today. Patient states it began after she woke up earlier this morning. Patient states it has been intermittent throughout the morning. Patient states she had 9 episodes of vomiting today. Patient denies any hematemesis or coffee-ground emesis. Patient denies any melena or hematochezia. Patient describes her pain as cramping and is intermittent. Patient states that she gets the abdominal cramping and pain and then has episodes of nausea and vomiting. Patient states the pain then goes away after she vomits. Patient states nothing else makes it better nothing makes it worse. Patient denies any dysuria, hematuria, or urinary frequency. Patient states she called her primary care physician's office today. Patient states she was told to come to the emergency department so she does not become dehydrated. [facility] Medical History Congestive heart failure (CHF) GERD (gastroesophageal reflux disease) Hypertension ICD (implantable cardioverter-defibrillator) in place Pacemaker Home Medications aspirin 81 mg tablet,delayed release (Ecotrin Low Strength) 81 mg PO DAILY 07/14/13 [History Last Taken Unknown] cholecalciferol (vitamin D3) 50 mcg (2,000 unit) tablet 6,000 unit PO DAILY 07/14/13 [History Last Taken Unknown] esomeprazole magnesium 40 mg capsule,delayed release (Nexium) 40 mg PO DAILY Check with primary doctor 07/14/13 [History Last Taken 09/29/16 06:00] lisinopril 5 mg tablet 5 mg PO DAILY 07/14/13 [History Last Taken 07/21/13 08:00] rosuvastatin 10 mg tablet 10 mg PO QHS 07/14/13 [History Last Taken Unknown] omega-3 fatty acids 2,000 mg PO BID 05/11/22 [History Last Taken Unknown] Lactobacillus acidophilus 1 caplet PO.IVFORM DAILY Check with primary doctor 05/12/22 [History Last Taken Unknown] benzonatate 100 mg capsule 100 mg PO TID PRN Cough 05/12/22 [History Last Taken Unknown] carvedilol 12.5 mg tablet 12.5 mg PO BID #10 tabs 05/13/22 [Rx Last Taken 09/29/16 06:00] guaifenesin 1,200 mg tablet, extended release 12 hr (Mucus Relief ER) 1,200 mg PO BID 7 days #14 tabs 05/13/22 [Rx Last Taken Unknown] levofloxacin 500 mg tablet 500 mg PO DAILY #5 tabs 05/13/22 [Rx Last Taken Unknown] ondansetron 4 mg disintegrating tablet 4 mg PO Q8H PRN PRN Nausea #10 tabs 06/02/22 [Rx Last Taken Unknown] Allergy/AdvReac Type Severity Reaction Status Date / Time codeine Allergy Rash Verified 06/02/22 09:52 Penicillins Allergy Rash Verified 06/02/22 09:52 Family History Other CAD (coronary artery disease) CVA (cerebral vascular accident) Diabetes Kidney disease Surgical History Hx of cholecystectomy Social History household members: spouse housing: house number of children: 1 current occupational status: retired pets and animals: No Smoking Status: Never smoker ROS ROS ED Constitutional Constitutional ED: Denies chills or fever(s) Eyes Eyes: Denies blurry vision or change in vision ENT ENT ED: Denies rhinorrhea or sore throat Cardiovascular Cardiovascular: Denies chest pain or palpitations Respiratory/Chest Respiratory/Chest: Denies cough or dyspnea Gastrointestinal Gastrointestinal: Reports abdominal pain, diarrhea, nausea and vomiting Genitourinary Genitourinary ED: Denies dysuria or hematuria Musculoskeletal Musculoskeletal: Denies back pain or neck pain Integumentary Denies abscess or rash Neurologic Neurologic: Reports headache(s); Denies weakness Allergic/Immunologic Allergic/Immunologic ED: Denies mouth swelling or urticaria EXAM Physical Exam Const Vital Signs: 06/02/22 09:52 Temperature 98.4 F Temperature Source Oral Pulse Rate 105 H Respiratory Rate 24 H Blood Pressure 118/76 Blood Pressure Mean 90 Pulse Ox 99 Oxygen Delivery Method Room Air Positive well nourished and well developed General Appearance ED: well developed HEENT Reports moist mucous membranes Neck supple and no JVD Resp normal respiratory effort and clear to auscultation bilaterally Cardio regular rate, regular rhythm and no murmurs GI normal to inspection, nondistended, normoactive bowel sounds and non-tender Palpation: soft Extremity normal to inspection General Extremety ED: Negative for edema or tenderness General Extremity: Negative for edema Neuro oriented x3, CN's II-XII intact bilaterally and no sensory deficits noted Sensorium / Orientation: alert Motor Exam: strength 5/5 throughout Psych mental status grossly normal Skin no rashes or lesions noted MDM MDM MDM Narrative Medical decision making narrative: Differential diagnosis includes gastroenteritis, pancreatitis, dehydration, urinary tract infection, pyelonephritis, and electrolyte abnormality. CBC will be obtained to assess for leukocytosis and anemia. Comprehensive metabolic profile will be obtained to assess for electrolyte abnormality, renal function, and hepatic function. Urinalysis will be obtained to assess for urinary tract infection. Since the patient is not currently having any pain and she is not tender on examination, I do not feel this is a bowel obstruction or perforation. Lab Data Attestation: I reviewed the patient's lab results. Lab results narrative: CBC was reviewed and showed a mild leukocytosis of 14.9. Comprehensive metabolic profile was reviewed and was essentially within normal limits. Lipase was reviewed and was normal. Urinalysis was reviewed and does not show any evidence of urinary tract infection or hematuria. Labs: Laboratory Results - last 24 hr 06/02/22 06/02/22 06/02/22 10:40 10:40 11:20 WBC 14.9 H RBC 4.98 Hgb 14.5 Hct 46.2 MCV 92.8 MCH 29.1 MCHC 31.4 L RDW Std Deviation 43.9 RDW Coeff of Yumiko 13.1 Plt Count 243 MPV 10.9 Immature Gran % (Auto) 0.600 Neut % (Auto) 83.8 H Lymph % (Auto) 9.9 L [place] % (Auto) 4.1 Eos % (Auto) 1.3 Baso % (Auto) 0.3 Absolute Neuts (auto) 12.5 H Absolute Lymphs (auto) 1.47 Nucleated RBC % 0 Sodium 138 Potassium 4.7 Chloride 104 Carbon Dioxide 24.0 Anion Gap 10 BUN 17 Creatinine 0.98 Estim Creat Clear Calc 48.75 Est GFR (MDRD) Af Amer 72 Est GFR (MDRD) Non-Af 59 L BUN/Creatinine Ratio 17.3 Glucose 135 H Calcium 9.4 Total Bilirubin 0.60 AST 58 H ALT 76 H Alkaline Phosphatase 111 Total Protein 7.3 Albumin 4.1 Globulin 3.2 Albumin/Globulin Ratio 1.3 Lipase 187 Urine Color Yellow Urine Clarity Sl. Cloudy Urine pH 6.0 Ur Specific [place] 1.015 Urine Protein Negative Urine Glucose (UA) Normal Urine Ketones Negative Urine Occult Blood Negative Urine Nitrite Negative Urine Bilirubin Negative Urine Urobilinogen Normal Ur Leukocyte Esterase Negative Urine RBC 0 SEEN Urine WBC 0 SEEN Ur Squamous Epith Cells 0-5 SEEN Urine Bacteria 0 SEEN Urine Mucus 0 SEEN Differential Diagnosis Abdominal Pain: Appendicitis Reason(s) appendicitis less likely: Positive for clinical exam does not supportclinical exam does not support, Cholecystitis Reason(s) Cholecystitis less likely: other (Prior cholecystectomy), Pancreatitis Reason(s) Pancreatitis less likely: NL lab values, Bowel obstruction Reason(s) bowel obstruction less likely: bowel sounds present on exam and other (No abdominal tenderness on exam) and UTI Reason(s) UTI less likely: clinical exam does not support and no evidence of infection on urinalysis Treatment and Re-Evaluation :: Patient was given IV fluids and Zofran. Patient is feeling somewhat better on reevaluation. Patient states her nausea has improved but states it feels like it may be starting to come back. Patient was given a prescription for Zofran. Patient was instructed to start with a liquid diet and advance to a bland diet and then to a regular diet if she feels better. Patient was instructed to follow-up with her primary care physician in 5 to 7 days. Patient was instructed return if worse in any way. Patient understood and was agreeable with the plan. All questions were answered. Discharge Plan Triage Chief Complaint: Nausea/Vomiting/Diarrhea ED Provider: Jacky Inman Dx/Rx/DC Orders Clinical Impression: Nausea vomiting and diarrhea, Leukocytosis Instructions: ED Gastroenteritis, Viral (Adult) Prescriptions: New ondansetron [ondansetron] 4 mg tablet,disintegrating 4 mg PO Q8H PRN PRN (Reason: Nausea) Qty: 10 0RF No Action aspirin [Ecotrin Low Strength] 81 MG tablet,delayed release (DR/EC) 81 mg PO DAILY esomeprazole magnesium [Nexium] 40 MG capsule 40 mg PO DAILY lisinopril 5 MG tablet 5 mg PO DAILY Hold Instructions: Hold for 2 weeks until sees PCP. rosuvastatin 10 MG tablet 10 mg PO QHS cholecalciferol (vitamin D3) 2,000 UNIT tablet 6,000 unit PO DAILY omega-3 fatty acids Capsule 2,000 mg PO BID benzonatate 100 mg Capsule 100 mg PO TID PRN (Reason: Cough) Lactobacillus acidophilus 1 caplet PO.IVFORM DAILY Mucus Relief ER 1,200 mg Tablet Extended Release 12hr 1,200 mg PO BID 7 Days Qty: 14 0RF levofloxacin 500 mg tablet 500 mg PO DAILY Qty: 5 0RF carvedilol 12.5 MG tablet 12.5 mg PO BID Qty: 10 0RF Label Comments: TAKES 1 1/2 TAB TWICE A DAY Rx Instructions: Advised to monitor BP and if systolic BP less than 100 mmHg, will decrease the dose to 6.25 mg twice daily. Primary Care Provider: Anushka San Referrals: Anushka San MD [Primary Care Provider] - 3-5 Days Disposition Disposition: Home, Self Care
[2022-06-02 11:25] LABS: Bacteria 0 SEEN /hpf (None Seen); Mucous, Urine 0 SEEN /hpf (<or=2+); Red Blood Cells-Urine 0 SEEN /hpf (0-5); White Blood Cells 0 SEEN /hpf (0-5)
[2022-06-02 11:28] LABS: Color, Urine Yellow (Yellow); Glucose, Dipstick Normal (Normal); Ketone-Dipstick Negative (Negative); Leukocyte Esterase-Dipstick Negative /ul (Negative); Nitrite-Dipstick Negative (Negative); Occult Blood-Urine Negative /ul (Negative); Protein-Dipstick Negative (Negative); Specific Gravity, Urine 1.015 (1.002-1.030); Urine Bilirubin Dipstick Negative (Negative); Urine Clarity Sl. Cloudy (Clear); Urine Urobilinogen Normal (Normal)
[2022-06-02 11:36] LABS: Squamous Epithelial Cells - UA 0-5 SEEN /hpf (5-10)
[2022-06-02 12:21] VITALS: BP 110/59; PULSE 95; RESP 16; O2SAT 95
== END 2022-06-02 12:21 | disposition home or self-care (01) ==
PROVIDERS: Emergency Provider Emergency Medicine; PCP Internal Medicine; Visit Provider Emergency Medicine
DX: R11.2 Nausea with vomiting, unspecified (principal); I50.9 Heart failure, unspecified; R19.7 Diarrhea, unspecified; D72.829 Elevated white blood cell count, unspecified; Z95.810 Presence of automatic (implantable) cardiac defibrillator
CPT/HCPCS: 80053; 81001; 83690; 85025; 96361; 96374; 99283; J7030; A4216; J2405

== ENCOUNTER 2023-01-20 11:01 | Outpatient (CLI) | payer MEDICARE, OTHER, SELFPAY | END 2023-01-20 23:59 | disposition home or self-care (01) | LOC: LABSPEC 11:04 | PROVIDERS: PCP Otolaryngology; Visit Provider Otolaryngology | DX: J02.9 Acute pharyngitis, unspecified (principal) | CPT/HCPCS: 87070 ==